=== PATIENT | male | born 1985 | race Two or more races ===

== ENCOUNTER 2019-04-22 10:29 | Emergency (ER) | payer SELFPAY ==
[~2019-04-22] VITALS: Ht 170.2 cm; Wt 79.5 kg
[2019-04-22 11:27] VITALS: BP 127/49
== END 2019-04-22 12:10 | disposition home or self-care (01) ==
LOC: EMS 10:30
DX: R76.11 Nonspecific reaction to tuberculin skin test without active tuberculosis (principal); F15.90 Other stimulant use, unspecified, uncomplicated